=== PATIENT | female | born 1965 | race Caucasian/White ===

== ENCOUNTER 2017-05-03 01:12 | Emergency (ER) | payer SELFPAY ==
[~2017-05-03] VITALS: Ht 162.6 cm; Wt 72.6 kg
[2017-05-03 01:50] LABS: BILIRUBIN,URINE NEGATIVE (NEG); GLUCOSE,URINE NEGATIVE (NEG); NITRITE,URINE NEGATIVE (NEG); PROTEIN,URINE NEGATIVE (NEG-TRACE); UROBILINOGEN,URINE 0.2 mg/dL (0.2 mg/dL)
[2017-05-03 01:51] LABS: BASO # 0.1 x10^3/uL (0.0-0.2); BASO % 1 % (0-3); EOS % 2 % (0-3); HEMATOCRIT 44.6 % (36.0-47.0); HEMOGLOBIN 14.9 g/dL (12.0-15.5); LYMPH # 3.7 x10^3/uL (1.0-4.8); LYMPH % 31 % (24-48); MEAN CORPUSCULAR HEMOGLOBIN 31 pg (25-35); MEAN CORPUSCULAR HGB CONC 33 g/dL (31-37); MEAN CORPUSCULAR VOLUME 94 fL (79-100); MONO % 8 % (0-9); NEUT % 59 % (31-73); PLATELET COUNT 272 x10^3/uL (140-400); RED BLOOD COUNT 4.76 x10^6/uL (3.50-5.40); WHITE BLOOD COUNT 11.8 x10^3/uL (4.0-11.0)
[2017-05-03 01:53] LABS: NEG OBC UR NEG; POS OBC UR POS
[2017-05-03 01:58] LABS: SQUAMOUS EPITHELIAL CELL,UR OCC /LPF; WBC,URINE 0 /HPF (0-4)
[2017-05-03 01:59] LABS: BACTERIA,URINE 0 /HPF (0-FEW)
[2017-05-03] MEDS ORDERED: IV NORMAL SALINE 1000ML BAG 1,000 ML IV ONE (02:00)
[2017-05-03] MEDS ORDERED: ONDANSETRON PF 4 MG/2 ML VIAL. IV ONE (02:00)
[2017-05-03] MEDS ORDERED: HYDROmorphone 2 MG/ML VIAL IV ONE (02:00)
[2017-05-03] MEDS ORDERED: KETOROLAC 15 MG/ML VIAL. IV ONE (02:00)
[2017-05-03 02:48] LABS: CALCIUM 9.4 mg/dL (8.5-10.1); GFR 58.5; POTASSIUM 3.2 mmol/L (3.5-5.1)
--- NOTE | 2017-05-03 02:51 | RAD ---
Right upper quadrant abdominal ultrasound History: Right upper quadrant and epigastric pain, nausea, vomiting x 6 hrs Comparison: None. Technique: Transabdominal ultrasound images are obtained. Findings: Visualized pancreas is unremarkable. Liver is normal in echogenicity. No focal hepatic masses are identified. Portal flow is hepatopedal. Right hepatic lobe measures 15.7 cm, normal. There is cholelithiasis. There is a possibly nonmobile 15 mm shadowing stone in the gallbladder neck. The gallbladder wall is mildly thickened measuring 4 mm. Sonographic Ramirez sign is positive. Common bile duct caliber is borderline dilated measuring 7 mm in diameter. The right kidney measures 11.2 cm in length. No hydronephrosis. There are right renal cysts, largest lateral interpolar measures 3.6 x 2.5 x 2.8 cm. Visualized portions of the aorta and IVC have normal caliber. IMPRESSION: 1. Cholelithiasis. The gallbladder wall is mildly thickened, sonographic Ramirez sign is positive. Findings suggestive of cholecystitis. 2. Right renal cysts. Electronically signed by: Arian Baker MD (05/03/2017 2:48 AM) [id number]
[2017-05-03 02:53] VITALS: BP 115/72
[2017-05-03 02:54] LABS: ALBUMIN 4.1 g/dL (3.4-5.0); ALBUMIN/GLOBULIN RATIO 1.2 (1.0-1.7); TOTAL BILIRUBIN 0.2 mg/dL (0.2-1.0); TOTAL PROTEIN 7.5 g/dL (6.4-8.2)
[2017-05-03] MEDS ORDERED: ONDA4TAB10 SL (03:10)
[2017-05-03] MEDS ORDERED: IBUP-1007 PO (03:10)
[2017-05-03] MEDS ORDERED: HYOS0.1265 SL (03:10)
--- NOTE | 2017-05-03 03:10 | PHYS DOC ---
Past Medical History Past Medical History: Hypertension Past Surgical History: Alcohol Use: None Drug Use: None Adult General Chief Complaint Chief Complaint: FLANK PAIN HPI HPI Patient is a 52 year old female with a history of hypertension presents here today complaining of right upper quadrant and flank pain that started approximately 7 PM. Patient denies any history of diabetes liver longer kidney problems. Patient reports she does smoke however no alcohol or drugs. Patient is allergic to Lortab. Patient reports makes her violently sick. Patient has any fevers shakes chills. Patient portion had nausea vomiting. No diarrhea. No dysuria frequency urgency. No hematuria. No chest pain or shortness of breath. No cough cold or runny nose. Patient reports that the pain is not exacerbated or relieved with anything that she can relate to. Patient reports pain is colicky in nature is greatest in the right upper quadrant and radiates to her back. Patient's physical exam is significant for severe tenderness to palpation to the right upper quadrant. Patient has no rebound or guarding. Patient has normal active bowel sounds. Patient has tenderness to palpation to her left flank as well. Patient does not present with any signs or symptoms O be consistent with an acute surgical abdomen. Patient's ER workup consisted of labs were unremarkable. Patient's LFTs were within normal limits. Patient's lipase was normal. Patient's ultrasound of her right upper quadrant which revealed cholelithiasis. The gallbladder wall is mildly thickened with a sonographic Ramirez sign. Findings are suggestive for cholecystitis on the ultrasound. We'll exam however is not consistent with acute cholecystitis. Patient has no fever, no white count. Patient has no Ramirez sign on my exam currently. Patient currently reports the pain is completely resolved after pain medications given in the ER. Assessment and plan This is a 52-year-old female who presents here today complaining of right upper quadrant pain. Patient does have an abnormal ultrasound. Ultrasound is consistent with cholelithiasis. There may be a question of cholecystitis given that she does have a sonographic Ramirez's and a slightly dilated gallbladder with wall thickness. Patient's physical exam currently is Dr. consistent with acute cholecystitis given that she is completely pain-free. Patient's been monitored in the ED for greater than 1-2 hours now and the pain is completely resolved. Patient is laughing playful getting around with her daughter and does not appear to be in any distress whatsoever. Patient reports that she has a 0- 10 pain right now and does not wish to be admitted to the hospital for any further evaluation or pain management. Patient reports that she wants to go home. Patient be discharged home with a prescription for Levsin as well as Zofran and ibuprofen. Patient was instructed to follow-up with her primary care physician for referral to see his surgeon in case she has a need for elective: Cystectomy in the future. Review of Systems Review of Systems Constitutional: Denies fever or chills [] Eyes: Denies change in visual acuity, redness, or eye pain [] All other review systems are negative except as documented in the history of present illness portion. Current Medications Current Medications Current Medications Medications (Trade) Dose Ordered Sig/Chip Start Time Stop Time Status Last Admin Dose Admin Hydromorphone HCl (Dilaudid) 1 mg 1X ONCE 05/03/17 02:00 05/03/17 02:01 DC 05/03/17 02:00 1 MG Ketorolac Tromethamine (Toradol) 15 mg 1X ONCE 05/03/17 02:00 05/03/17 02:01 DC 05/03/17 02:00 15 MG Ondansetron HCl (Zofran) 4 mg 1X ONCE 05/03/17 02:00 05/03/17 02:01 DC 05/03/17 02:00 4 MG Sodium Chloride 1,000 ml @ 1,000 mls/hr 1X ONCE 05/03/17 02:00 05/03/17 02:59 DC 05/03/17 01:48 1,000 MLS/HR Allergies Allergies Allergies Coded Allergies Type Severity Reaction Last Updated Verified No Known Drug Allergies 05/03/17 No Physical Exam Physical Exam Constitutional: Well developed, well nourished, no acute distress, non-toxic appearance. [] HENT: Normocephalic, atraumatic, bilateral external ears normal, oropharynx moist, no oral exudates, nose normal. [] Eyes: PERRLA, EOMI, conjunctiva normal, no discharge. [] Neck: Normal range of motion, no tenderness, supple, no stridor. [] Cardiovascular:Heart rate regular rhythm, Lungs & Thorax: Bilateral breath sounds clear to auscultation [] Abdomen: Tenderness to palpation to the right upper quadrant. No rebound or guarding. No Ramirez sign. Patient does not present with any signs or symptoms of be consistent with an acute surgical abdomen. Skin: Warm, dry, no erythema, no rash. [] Back: No tenderness, no CVA tenderness. [] Extremities: No tenderness, no cyanosis, no clubbing, ROM intact, no edema. [] Neurologic: Alert and oriented X 3, normal motor function, normal sensory function, no focal deficits noted. [] Psychologic: Affect normal, judgement normal, mood normal. [] Current Patient Data Vital Signs Vital Signs Date Time Temp Pulse Resp B/P (MAP) Pulse Ox O2 Delivery O2 Flow Rate FiO2 05/03/17 02:53 70 16 115/72 (86) 99 Room Air 05/03/17 01:21 97.9 97.9 Lab Values Laboratory Tests Test 05/03/17 01:25 White Blood Count 11.8 x10^3/uL (4.0-11.0) H Red Blood Count 4.76 x10^6/uL (3.50-5.40) Hemoglobin 14.9 g/dL (12.0-15.5) Hematocrit 44.6 % (36.0-47.0) Mean Corpuscular Volume 94 fL (79-100) Mean Corpuscular Hemoglobin 31 pg (25-35) Mean Corpuscular Hemoglobin Concent 33 g/dL (31-37) Red Cell Distribution Width 13.0 % (11.5-14.5) Platelet Count 272 x10^3/uL (140-400) Neutrophils (%) (Auto) 59 % (31-73) Lymphocytes (%) (Auto) 31 % (24-48) Monocytes (%) (Auto) 8 % (0-9) Eosinophils (%) (Auto) 2 % (0-3) Basophils (%) (Auto) 1 % (0-3) Neutrophils # (Auto) 6.9 x10^3uL (1.8-7.7) Lymphocytes # (Auto) 3.7 x10^3/uL (1.0-4.8) Monocytes # (Auto) 1.0 x10^3/uL (0.0-1.1) Eosinophils # (Auto) 0.2 x10^3/uL (0.0-0.7) Basophils # (Auto) 0.1 x10^3/uL (0.0-0.2) Urine Collection Type Unknown Urine Color Yellow Urine Clarity Cloudy Urine pH 8.0 Urine Specific [place] 1.020 Urine Protein Negative mg/dL (NEG-TRACE) Urine Glucose (UA) Negative mg/dL (NEG) Urine Ketones (Stick) Negative mg/dL (NEG) Urine Blood Negative (NEG) Urine Nitrite Negative (NEG) Urine Bilirubin Negative (NEG) Urine Urobilinogen Dipstick 0.2 mg/dL (0.2 mg/dL) Urine Leukocyte Esterase Negative (NEG) Urine RBC 1-2 /HPF (0-2) Urine WBC 0 /HPF (0-4) Urine Squamous Epithelial Cells Occ /LPF Urine Amorphous Sediment Present /HPF Urine Bacteria 0 /HPF (0-FEW) Urine Mucus Mod /LPF Urine Test Negative (NEG) Sodium Level 146 mmol/L (136-145) H Potassium Level 3.2 mmol/L (3.5-5.1) L Chloride Level 106 mmol/L (98-107) Carbon Dioxide Level 26 mmol/L (21-32) Anion Gap 14 (6-14) Blood Urea Nitrogen 21 mg/dL (7-20) H Creatinine 1.0 mg/dL (0.6-1.0) Estimated GFR (Cockcroft-Gault) 58.5 BUN/Creatinine Ratio 21 (6-20) H Glucose Level 123 mg/dL (70-99) H Calcium Level 9.4 mg/dL (8.5-10.1) Total Bilirubin 0.2 mg/dL (0.2-1.0) Aspartate Amino Transferase (AST) 16 U/L (15-37) Alanine Aminotransferase (ALT) 27 U/L (14-59) Alkaline Phosphatase 77 U/L (46-116) Total Protein 7.5 g/dL (6.4-8.2) Albumin 4.1 g/dL (3.4-5.0) Albumin/Globulin Ratio 1.2 (1.0-1.7) Lipase 238 U/L (73-393) Laboratory Tests 05/03/17 01:25 Laboratory Tests 05/03/17 01:25 EKG EKG [] Radiology/Procedures Radiology/Procedures [] Course & Med Decision Making Course & Med Decision Making Pertinent Labs and Imaging studies reviewed. (See chart for details) [] Dragon Disclaimer Dragon Disclaimer This electronic medical record was generated, in whole or in part, using a voice recognition dictation system. Departure Departure Impression: Primary Impression: Cholelithiasis Additional Impression: Biliary colic Disposition: 01 HOME, SELF-CARE Condition: IMPROVED Patient Instructions: Biliary Colic Scripts Ondansetron (ZOFRAN ODT) 4 Mg Tab.rapdis 1 TAB SL Q6HRS Y for NAUSEA, #12 TAB Prov: VOLODYMYR GUTIERRES MD 05/03/17 Hyoscyamine Sulfate (LEVSIN-SL) 0.125 Mg Tab.subl 0.125 MG SL Q6-8HRS Y for abdominal cramps, #10 Prov: VOLODYMYR GUTIERRES MD 05/03/17 Ibuprofen (IBUPROFEN) 600 Mg Tablet 600 MG PO PRN Q6HRS Y for PAIN, #20 TAB Prov: VOLODYMYR GUTIERRES MD 05/03/17 Problem Qualifiers VOLODYMYR GUTIERRES MD May 03, 2017 03:10
== END 2017-05-03 03:25 | disposition home or self-care (01) ==
LOC: ER 01:12
DX: K80.70 Calculus of gallbladder and bile duct without cholecystitis without obstruction (principal); I10 Essential (primary) hypertension; F17.200 Nicotine dependence, unspecified, uncomplicated; Z88.8 Allergy status to other drugs, medicaments and biological substances
CPT/HCPCS: 36415; 76705; 80053; 81001; 81025; 83690; 85027; 96361; 96374; 96375; 99285; J1170; J1885; J2405; J7030

== ENCOUNTER 2017-10-08 04:51 | Inpatient (IN) | payer SELFPAY ==
[2017-10-08] VITALS (12 sets, daily range): BP systolic 111–147; BP diastolic 69–86
[~2017-10-08] VITALS: Ht 160 cm; Wt 66.2 kg
[~2017-10-08 04:51] MED LIST: HYOS0.1265 SL; IBUP-1007 PO; ONDA4TAB10 SL
[2017-10-08 05:43] LABS: BASO # 0.1 x10^3/uL (0.0-0.2); BASO % 1 % (0-3); EOS % 2 % (0-3); HEMATOCRIT 43.2 % (36.0-47.0); HEMOGLOBIN 14.6 g/dL (12.0-15.5); LYMPH # 2.3 x10^3/uL (1.0-4.8); LYMPH % 26 % (24-48); MEAN CORPUSCULAR HEMOGLOBIN 31 pg (25-35); MEAN CORPUSCULAR HGB CONC 34 g/dL (31-37); MEAN CORPUSCULAR VOLUME 92 fL (79-100); MONO % 6 % (0-9); NEUT % 65 % (31-73); PLATELET COUNT 267 x10^3/uL (140-400); RED BLOOD COUNT 4.68 x10^6/uL (3.50-5.40); RED CELL DISTRIBUTION WIDTH 12.8 % (11.5-14.5); WHITE BLOOD COUNT 8.9 x10^3/uL (4.0-11.0)
[2017-10-08 05:44] LABS: BILIRUBIN,URINE NEGATIVE (NEG); GLUCOSE,URINE NEGATIVE (NEG); NITRITE,URINE NEGATIVE (NEG); PROTEIN,URINE NEGATIVE (NEG-TRACE); UROBILINOGEN,URINE 0.2 mg/dL (0.2 mg/dL)
[2017-10-08] MEDS ORDERED: fentaNYL PF VIAL 100 MCG/2 ML VIAL IV PRN ×3 (05:45→09:15)
[2017-10-08 05:53] LABS: CALCIUM 9.5 mg/dL (8.5-10.1); CREATININE 0.8 mg/dL (0.6-1.0); GFR 75.6; POTASSIUM 3.7 mmol/L (3.5-5.1)
[2017-10-08 05:58] LABS: BACTERIA,URINE MODERATE /HPF (0-FEW); SQUAMOUS EPITHELIAL CELL,UR MOD /LPF
[2017-10-08 05:58] LABS: ALBUMIN 3.9 g/dL (3.4-5.0); ALBUMIN/GLOBULIN RATIO 1.3 (1.0-1.7); TOTAL BILIRUBIN 0.4 mg/dL (0.2-1.0)
[2017-10-08 05:59] LABS: WBC,URINE OCC /HPF (0-4)
[2017-10-08] MEDS ORDERED: IV NORMAL SALINE 1000ML BAG 1,000 ML IV SCH (06:00)
[2017-10-08] MEDS ORDERED: ONDANSETRON PF 4 MG/2 ML VIAL. IV ONE (06:00)
--- NOTE | 2017-10-08 06:01 | PHYS DOC ---
Past Medical History Past Medical History: Hypertension Past Surgical History: Alcohol Use: None Drug Use: None Adult General Chief Complaint Chief Complaint: ABDOMINAL PAIN HPI HPI Patient is a 52 year old female who presents with complaint of abdominal pain which started last night at 1700. Patient states that the pain is in her upper abdomen and radiates towards her back. Patient has history of cholelithiasis. Patient has not had her gallbladder taken out. Patient states that she has had nausea but no vomiting and denies any fevers. Patient states that the pain has been coming and going but becomes very severe, rating it as 9 out of 10 at its worst. Patient states that she has taken naproxen with no relief in symptoms. The patient denies any chest pain, shortness of breath. Patient denies any known exacerbating symptoms for her pain at this time. The patient states her pain feels very similar to previous episodes of biliary colic but states that this has become more severe.[] Review of Systems Review of Systems Constitutional: Denies fever or chills [] Eyes: Denies change in visual acuity, redness, or eye pain [] HENT: Denies nasal congestion or sore throat [] Respiratory: Denies cough or shortness of breath [] Cardiovascular: Denies chest pain or edema[] GI: Abdominal pain, nausea, denies vomiting or diarrhea[] : Denies dysuria or hematuria [] Musculoskeletal: Denies back pain or joint pain [] Integument: Denies rash or skin lesions [] Neurologic: Denies headache, focal weakness or sensory changes [] All other systems were reviewed and found to be within normal limits, except as documented in this note. Current Medications Current Medications Current Medications Medications (Trade) Dose Ordered Sig/Chip Start Time Stop Time Status Last Admin Dose Admin Fentanyl Citrate (Fentanyl 2ml Vial) 50 mcg PRN Q15MIN PRN 10/08/17 05:45 10/09/17 05:44 10/08/17 07:07 50 MCG Ondansetron HCl (Zofran) 4 mg 1X ONCE 10/08/17 06:00 10/08/17 06:01 DC 10/08/17 07:06 4 MG Sodium Chloride 1,000 ml @ 1,000 mls/hr Q1H 10/08/17 06:00 10/08/17 06:59 DC 10/08/17 07:04 1,000 MLS/HR Allergies Allergies Allergies Coded Allergies Type Severity Reaction Last Updated Verified No Known Drug Allergies 05/03/17 No Physical Exam Physical Exam Constitutional: Alert, afebrile, appears in moderate discomfort. [] HENT: Normocephalic, atraumatic, bilateral external ears normal, oropharynx moist, no oral exudates, nose normal. [] Eyes: PERRLA, EOMI, conjunctiva normal, no discharge. [] Neck: Normal range of motion, no tenderness, supple, no stridor. [] Cardiovascular:Heart rate regular rhythm, no murmur [] Lungs & Thorax: Bilateral breath sounds clear to auscultation [] Abdomen: Bowel sounds normal, soft, positive Ramirez's sign, no masses, no pulsatile masses. [] Skin: Warm, dry, no erythema, no rash. [] Back: No tenderness, no CVA tenderness. [] Extremities: No tenderness, no cyanosis, no clubbing, ROM intact, no edema. [] Neurologic: Alert and oriented X 3, normal motor function, normal sensory function, no focal deficits noted. [] Current Patient Data Vital Signs Vital Signs Date Time Temp Pulse Resp B/P (MAP) Pulse Ox O2 Delivery O2 Flow Rate FiO2 10/08/17 07:07 19 97 Room Air 10/08/17 04:53 97.8 64 149/94 (112) 97.8 Lab Values Laboratory Tests Test 10/08/17 05:08 10/08/17 05:20 White Blood Count 8.9 x10^3/uL (4.0-11.0) Red Blood Count 4.68 x10^6/uL (3.50-5.40) Hemoglobin 14.6 g/dL (12.0-15.5) Hematocrit 43.2 % (36.0-47.0) Mean Corpuscular Volume 92 fL (79-100) Mean Corpuscular Hemoglobin 31 pg (25-35) Mean Corpuscular Hemoglobin Concent 34 g/dL (31-37) Red Cell Distribution Width 12.8 % (11.5-14.5) Platelet Count 267 x10^3/uL (140-400) Neutrophils (%) (Auto) 65 % (31-73) Lymphocytes (%) (Auto) 26 % (24-48) Monocytes (%) (Auto) 6 % (0-9) Eosinophils (%) (Auto) 2 % (0-3) Basophils (%) (Auto) 1 % (0-3) Neutrophils # (Auto) 5.8 x10^3uL (1.8-7.7) Lymphocytes # (Auto) 2.3 x10^3/uL (1.0-4.8) Monocytes # (Auto) 0.5 x10^3/uL (0.0-1.1) Eosinophils # (Auto) 0.2 x10^3/uL (0.0-0.7) Basophils # (Auto) 0.1 x10^3/uL (0.0-0.2) Sodium Level 144 mmol/L (136-145) Potassium Level 3.7 mmol/L (3.5-5.1) Chloride Level 107 mmol/L (98-107) Carbon Dioxide Level 26 mmol/L (21-32) Anion Gap 11 (6-14) Blood Urea Nitrogen 13 mg/dL (7-20) Creatinine 0.8 mg/dL (0.6-1.0) Estimated GFR (Cockcroft-Gault) 75.6 BUN/Creatinine Ratio 16 (6-20) Glucose Level 119 mg/dL (70-99) H Calcium Level 9.5 mg/dL (8.5-10.1) Total Bilirubin 0.4 mg/dL (0.2-1.0) Aspartate Amino Transferase (AST) 14 U/L (15-37) L Alanine Aminotransferase (ALT) 21 U/L (14-59) Alkaline Phosphatase 78 U/L (46-116) Total Protein 7.0 g/dL (6.4-8.2) Albumin 3.9 g/dL (3.4-5.0) Albumin/Globulin Ratio 1.3 (1.0-1.7) Lipase 171 U/L (73-393) Urine Collection Type Void Urine Color Yellow Urine Clarity Clear Urine pH 6.0 Urine Specific [place] 1.020 Urine Protein Negative mg/dL (NEG-TRACE) Urine Glucose (UA) Negative mg/dL (NEG) Urine Ketones (Stick) Negative mg/dL (NEG) Urine Blood Moderate (NEG) Urine Nitrite Negative (NEG) Urine Bilirubin Negative (NEG) Urine Urobilinogen Dipstick 0.2 mg/dL (0.2 mg/dL) Urine Leukocyte Esterase Negative (NEG) Urine RBC 6-10 /HPF (0-2) Urine WBC Occ /HPF (0-4) Urine Squamous Epithelial Cells Mod /LPF Urine Bacteria Moderate /HPF (0-FEW) Urine Mucus Marked /LPF Laboratory Tests 10/08/17 05:08 Laboratory Tests 10/08/17 05:08 EKG EKG Not performed[] Radiology/Procedures Radiology/Procedures [] Course & Med Decision Making Course & Med Decision Making Pertinent Labs and Imaging studies reviewed. (See chart for details) Patient started on IV fluids, fentanyl, and Zofran. Abdominal ultrasound pending at time of sign out. Care of patient signed over to Dr. Webb at [phone]. [phone] I have discussed lab and US with patient. Will contact surgery and discuss options, pt agreeable with surgery. Pain well controlled. GEN: no distress, non toxic HEENT: NCAT, anicteric, no JVD CV: RRR, normal perfusion Lungs: CTAB, no tachypnea Abdomen: non distended, TTP ruq, no g/r, no pulsatile mass EXTR: wnl, no signs of DVT or edema Back: normal ROM Neuro: no focal deficits. Psych: normal mood [address] Ayala, recommends admission to hospitalist and he will consult Dragon Disclaimer Dragon Disclaimer This electronic medical record was generated, in whole or in part, using a voice recognition dictation system. Departure Departure Impression: Primary Impression: Cholelithiasis Additional Impression: Cholecystitis Disposition: ADMITTED INPATIENT Admitting Physician: Radha Foley Condition: STABLE Referrals: CHEYENNE DIAZ MD (PCP) Problem Qualifiers JIE CARDOSO MD Oct 08, 2017 06:01 Jayce WEBB MD Oct 08, 2017 07:16
--- NOTE | 2017-10-08 07:06 | RAD ---
Clinical History: Abdominal pain and nausea Technique: Sonographic examination of the right upper quadrant of the abdomen was performed and multiple static images were obtained. Comparison: none Findings: The majority of the liver is visualized and appears homogeneous. The common bile duct is mildly dilated and measures 8 mm in diameter. The gallbladder is seen with stones and mild wall thickening and tenderness. The pancreas is not well visualized due to overlying bowel gas but appears within normal limits. The right kidney is seen with multiple cysts but no hydronephrosis and measures 11 cm in length. Impression: 1. Cholelithiasis and evidence of mild acute cholecystitis. 2. Mildly dilated common bile duct. Electronically signed by: [place] III, MD (10/08/2017 7:02 AM) [id number]
--- NOTE | 2017-10-08 07:34 | EKG ---
[facility] [address] [place] [address] Test Date: 2017-10-08 Test Time: 07:26:14 Pat Name: BROWN LITTLEJOHN Department: Room: Gender: F [employer]visor [employer]: : 1965 Requested By: JIE CARDOSO Order Number: [id number] Reading MD: Mario Betancourt Measurements Intervals [place] Rate: 51 P: 0 [place]: 136 QRS: -48 QRSD: 86 T: 56 QT: 442 QTc: 409 Interpretive Statements SINUS RHYTHM ABNORMAL LEFT AXIS DEVIATION LEFT ANTERIOR FASCICULAR BLOCK ABNORMAL ECG Electronically Signed On 10-18-2017 9:08:30 [employer] by Mario Betancourt
[2017-10-08] MEDS ORDERED: PIPERACILLIN/TAZOBACTAM 3.375 GM in IV DEXTROSE 5% 50 ML IV ONE (08:15)
[2017-10-08] MEDS ORDERED: PIPERACILLIN/TAZO IV Push 3.375 GM VIAL. IVP ONE (08:30)
--- NOTE | 2017-10-08 09:13 | PDOC2 ---
CONSULT Date of Consult Date of Consult DATE: 10/08/17 TIME: 09:02 Reason for Consult Reason for Consult: cholecystitis Referring Physician Referring Physician: ER Identification/Chief Complaint Chief Complaint abdominal pain Problems: Source Source: Chart review, Patient History of Present Illness Reason for Visit: Reports acute onset of upper abdominal pain yesterday. She has had issues with similar pain off and on for some time. Associated nausea, no aggravating factors. Currently most pain is RUQ/epigastric Past Medical History Cardiovascular: HTN GI: GERD Past Surgical History Past Surgical History: Family History Family History: Other (noncontributory to current illness) Social History <1 pack per day ALCOHOL: rare Drugs: None Lives: Alone Current Problem List Problem List Problems Medical Problems: (1) Cholecystitis Status: Acute (2) Cholelithiasis Status: Acute Current Medications Current Medications Current Medications Fentanyl Citrate (Fentanyl 2ml Vial) 50 mcg PRN Q15MIN PRN IV PAIN GREATER THAN 3/10 Last administered on 10/08/17 07:07; Start 10/08/17 at 05:45; Stop 10/09/17 at 05:44 Sodium Chloride 1,000 ml @ 1,000 mls/hr Q1H IV Last administered on 07:04; Start 10/08/17 at 06:00; Stop 10/08/17 at 06:59; Status DC Ondansetron HCl (Zofran) 4 mg 1X ONCE IV Last administered on 10/08/17 07:06 ; Start 10/08/17 at 06:00; Stop 10/08/17 at 06:01; Status DC Piperacillin Sod/ Tazobactam Sod 3.375 gm/Dextrose 50 ml @ 100 mls/hr 1X ONCE IV ; Start 10/08/17 at 08:15; Stop 10/08/17 at 08:44; Status UNV Piperacillin Sod/ Tazobactam Sod (Zosyn) 3.375 gm ONCE ONCE IVP ; Start at 08:30; Stop 10/08/17 at 08:31; Status DC Lactobacillus Rhamnosus (Culturelle) 1 cap BID PO ; Start 10/08/17 at 21:00 Active Scripts Active Zofran Odt (Ondansetron) 4 Mg Tab.rapdis 1 Tab SL Q6HRS PRN Levsin-Sl (Hyoscyamine Sulfate) 0.125 Mg Tab.subl 0.125 Mg SL Q6-8HRS PRN Ibuprofen 600 Mg Tablet 600 Mg PO PRN Q6HRS PRN Allergies Allergies: Coded Allergies: No Known Drug Allergies (Unverified , 05/03/17) ROS General: No: Chills, Other (fevers) PSYCHOLOGICAL ROS: No: Anxiety, Depression Eyes: No Blurry vision, No Double vision HEENT: No: Heacaches Hematological and Lymphatic: No: Bleeding Problems, Blood Clots Respiratory: No: Cough, Shortness of breath Cardiovascular: No Chest Pain, No Palpitations Gastrointestinal: No Diarrhea, No Constipation Genitourinary: No Dysuria, No Hematuria Musculoskeletal: No Joint Pain, No Muscle Pain Neurological: No Confusion, No Numbness/Tingling Skin: No Pruritus, No Rash Physical Exam General: Alert, Oriented X3, Cooperative, No acute distress HEENT: PERRLA, Mucous membr. moist/pink Lungs: Clear to auscultation, Normal air movement Heart: Regular rate, Normal S1, Normal S2, No murmurs Abdomen: Soft, Other (ND, Moderate RUQ TTP) Extremities: No clubbing, No cyanosis Skin: No rashes, No breakdown Neuro: Normal gait, Normal speech Psych/Mental Status: Mental status NL, Mood NL MUSCULOSKELETAL: No deformity, No swelling Vitals VITALS Vital Signs Date Time Temp Pulse Resp B/P (MAP) Pulse Ox O2 Delivery O2 Flow Rate FiO2 10/08/17 08:25 96.6 69 16 136/79 (98) 97 Room Air 96.6 Labs Labs Laboratory Tests Test 10/08/17 05:08 10/08/17 05:20 White Blood Count 8.9 x10^3/uL (4.0-11.0) Red Blood Count 4.68 x10^6/uL (3.50-5.40) Hemoglobin 14.6 g/dL (12.0-15.5) Hematocrit 43.2 % (36.0-47.0) Mean Corpuscular Volume 92 fL (79-100) Mean Corpuscular Hemoglobin 31 pg (25-35) Mean Corpuscular Hemoglobin Concent 34 g/dL (31-37) Red Cell Distribution Width 12.8 % (11.5-14.5) Platelet Count 267 x10^3/uL (140-400) Neutrophils (%) (Auto) 65 % (31-73) Lymphocytes (%) (Auto) 26 % (24-48) Monocytes (%) (Auto) 6 % (0-9) Eosinophils (%) (Auto) 2 % (0-3) Basophils (%) (Auto) 1 % (0-3) Neutrophils # (Auto) 5.8 x10^3uL (1.8-7.7) Lymphocytes # (Auto) 2.3 x10^3/uL (1.0-4.8) Monocytes # (Auto) 0.5 x10^3/uL (0.0-1.1) Eosinophils # (Auto) 0.2 x10^3/uL (0.0-0.7) Basophils # (Auto) 0.1 x10^3/uL (0.0-0.2) Sodium Level 144 mmol/L (136-145) Potassium Level 3.7 mmol/L (3.5-5.1) Chloride Level 107 mmol/L (98-107) Carbon Dioxide Level 26 mmol/L (21-32) Anion Gap 11 (6-14) Blood Urea Nitrogen 13 mg/dL (7-20) Creatinine 0.8 mg/dL (0.6-1.0) Estimated GFR (Cockcroft-Gault) 75.6 BUN/Creatinine Ratio 16 (6-20) Glucose Level 119 mg/dL (70-99) Calcium Level 9.5 mg/dL (8.5-10.1) Total Bilirubin 0.4 mg/dL (0.2-1.0) Aspartate Amino Transf (AST/SGOT) 14 U/L (15-37) Alanine Aminotransferase (ALT/SGPT) 21 U/L (14-59) Alkaline Phosphatase 78 U/L (46-116) Total Protein 7.0 g/dL (6.4-8.2) Albumin 3.9 g/dL (3.4-5.0) Albumin/Globulin Ratio 1.3 (1.0-1.7) Lipase 171 U/L (73-393) Urine Collection Type Void Urine Color Yellow Urine Clarity Clear Urine pH 6.0 Urine Specific [place] 1.020 Urine Protein Negative mg/dL (NEG-TRACE) Urine Glucose (UA) Negative mg/dL (NEG) Urine Ketones (Stick) Negative mg/dL (NEG) Urine Blood Moderate (NEG) Urine Nitrite Negative (NEG) Urine Bilirubin Negative (NEG) Urine Urobilinogen Dipstick 0.2 mg/dL (0.2 mg/dL) Urine Leukocyte Esterase Negative (NEG) Urine RBC 6-10 /HPF (0-2) Urine WBC Occ /HPF (0-4) Urine Squamous Epithelial Cells Mod /LPF Urine Bacteria Moderate /HPF (0-FEW) Urine Mucus Marked /LPF Laboratory Tests Test 10/08/17 05:08 10/08/17 05:20 White Blood Count 8.9 x10^3/uL (4.0-11.0) Red Blood Count 4.68 x10^6/uL (3.50-5.40) Hemoglobin 14.6 g/dL (12.0-15.5) Hematocrit 43.2 % (36.0-47.0) Mean Corpuscular Volume 92 fL (79-100) Mean Corpuscular Hemoglobin 31 pg (25-35) Mean Corpuscular Hemoglobin Concent 34 g/dL (31-37) Red Cell Distribution Width 12.8 % (11.5-14.5) Platelet Count 267 x10^3/uL (140-400) Neutrophils (%) (Auto) 65 % (31-73) Lymphocytes (%) (Auto) 26 % (24-48) Monocytes (%) (Auto) 6 % (0-9) Eosinophils (%) (Auto) 2 % (0-3) Basophils (%) (Auto) 1 % (0-3) Neutrophils # (Auto) 5.8 x10^3uL (1.8-7.7) Lymphocytes # (Auto) 2.3 x10^3/uL (1.0-4.8) Monocytes # (Auto) 0.5 x10^3/uL (0.0-1.1) Eosinophils # (Auto) 0.2 x10^3/uL (0.0-0.7) Basophils # (Auto) 0.1 x10^3/uL (0.0-0.2) Sodium Level 144 mmol/L (136-145) Potassium Level 3.7 mmol/L (3.5-5.1) Chloride Level 107 mmol/L (98-107) Carbon Dioxide Level 26 mmol/L (21-32) Anion Gap 11 (6-14) Blood Urea Nitrogen 13 mg/dL (7-20) Creatinine 0.8 mg/dL (0.6-1.0) Estimated GFR (Cockcroft-Gault) 75.6 BUN/Creatinine Ratio 16 (6-20) Glucose Level 119 mg/dL (70-99) Calcium Level 9.5 mg/dL (8.5-10.1) Total Bilirubin 0.4 mg/dL (0.2-1.0) Aspartate Amino Transf (AST/SGOT) 14 U/L (15-37) Alanine Aminotransferase (ALT/SGPT) 21 U/L (14-59) Alkaline Phosphatase 78 U/L (46-116) Total Protein 7.0 g/dL (6.4-8.2) Albumin 3.9 g/dL (3.4-5.0) Albumin/Globulin Ratio 1.3 (1.0-1.7) Lipase 171 U/L (73-393) Urine Collection Type Void Urine Color Yellow Urine Clarity Clear Urine pH 6.0 Urine Specific [place] 1.020 Urine Protein Negative mg/dL (NEG-TRACE) Urine Glucose (UA) Negative mg/dL (NEG) Urine Ketones (Stick) Negative mg/dL (NEG) Urine Blood Moderate (NEG) Urine Nitrite Negative (NEG) Urine Bilirubin Negative (NEG) Urine Urobilinogen Dipstick 0.2 mg/dL (0.2 mg/dL) Urine Leukocyte Esterase Negative (NEG) Urine RBC 6-10 /HPF (0-2) Urine WBC Occ /HPF (0-4) Urine Squamous Epithelial Cells Mod /LPF Urine Bacteria Moderate /HPF (0-FEW) Urine Mucus Marked /LPF Assessment/Plan Assessment/Plan acute cholecystitis HTN Tobaccoism NPO, plan for Lap genna today DEANNA BURRIS APRN Oct 08, 2017 09:13
[2017-10-08] MEDS ORDERED: IV RINGERS,LACTATED 1000ML 1,000 ML IV SCH (09:14)
[2017-10-08] MEDS ORDERED: PROCHLORPERAZINE 10 MG/2 ML VIAL. IV PRN (09:15)
[2017-10-08] MEDS ORDERED: ONDANSETRON PF 4 MG/2 ML VIAL. IV PRN ×2 (09:15→16:00)
[2017-10-08] MEDS ORDERED: HYDROmorphone 2 MG/ML VIAL IV PRN ×2 (09:15→16:00)
[2017-10-08] MEDS ORDERED: MORPHINE SULFATE 2 MG/ML DISP.SYRIN. IV PRN (09:15)
[2017-10-08] MEDS ORDERED: LIDOCAINE 1% PF 2 ML VIAL. ID PRN (09:15)
[2017-10-08] MEDS ORDERED: SEVOFLURANE 61 TO 120 MINUTES. IH ONE (09:45)
[2017-10-08] MEDS ORDERED: MIDAZOLAM HCL/PF 2 MG/2 ML VIAL. ONE (09:48)
[2017-10-08] MEDS ORDERED: ROCURONIUM 50 MG/5 ML VIAL. ONE (09:49)
[2017-10-08] MEDS ORDERED: NEOSTIGMINE METHYLSULFATE 5 MG/5 ML SYRINGE. ONE (09:49)
[2017-10-08] MEDS ORDERED: PROPOFOL 20 ML IV ONE (09:49)
[2017-10-08] MEDS ORDERED: KETOROLAC 30 MG/ML INJ FOR OR. INJ ONE (09:49)
[2017-10-08] MEDS ORDERED: GLYCOPYRROLATE 1 MG/5 ML VIAL. ONE (09:49)
[2017-10-08] MEDS ORDERED: LIDOCAINE 2% PF Vial for OR 5 ML VIAL. ONE (09:49)
[2017-10-08] MEDS ORDERED: DEXAMETHASONE SOD PHOS 20 MG/5 ML VIAL. ONE (09:49)
[2017-10-08] MEDS ORDERED: fentaNYL PF VIAL 100 MCG/2 ML VIAL ONE ×2 (09:49→12:57)
[2017-10-08] MEDS ORDERED: ONDANSETRON PF 4 MG/2 ML VIAL. ONE (09:49)
[2017-10-08] MEDS ORDERED: BUPIVAC MPF-EPI 0.5%-1:200000 30 ML VIAL. ONE (11:46)
[2017-10-08] MEDS ORDERED: IOHEXOL 300 MG/ML 100ML VIAL. ONE (11:47)
[2017-10-08] MEDS ORDERED: GLUCAGON,HUMAN RECOMBINANT 1 MG/ML VIAL. ONE (11:47)
[2017-10-08] MEDS ORDERED: SURGICEL HEMOSTAT 4X8 EACH. ONE (11:47)
[2017-10-08] MEDS ORDERED: ACETAMINOPHEN 500 MG TABLET PO PRN (12:15)
--- NOTE | 2017-10-08 12:46 | RAD ---
C-arm fluoroscopy with fluoroscopic spot views Indications: Intraoperative cholangiogram. Total fluoroscopic time: 17 seconds. Total fluoroscopic spot images: 2 IMPRESSION: Fluoroscopic spot images demonstrate opacification of the extrahepatic biliary tree with free flow of contrast material from the common bile duct into the duodenum. No stricture or stone is evident.
[2017-10-08] MEDS ORDERED: DESFLURANE 61 TO 120 MINUTES IH ONE (12:57)
--- NOTE | 2017-10-08 13:08 | OP ---
DATE OF SURGERY: 10/08/2017 PREOPERATIVE DIAGNOSIS: Cholelithiasis with acute cholecystitis. POSTOPERATIVE DIAGNOSIS: Cholelithiasis with acute cholecystitis. PROCEDURE: Laparoscopic cholecystectomy with cholangiogram. SURGEON: Leon Hazel MD. IT LEAD: JACKELINE Brooks. ANESTHESIA: General endotracheal. ESTIMATED BLOOD LOSS: 25 mL. INTRAVENOUS FLUID: 1 liter. INDICATIONS: The patient is a 52-year-old with known cholelithiasis whose pain got worse last night. She brought that with her to the ED today where ultrasound shows some wall thickening and stones. She is brought for cholecystectomy. OPERATIVE FINDINGS: The liver was smooth and sharp. The gallbladder was moderately edematous. Cholangiograms were normal. There were omental adhesions in the lower abdomen from previous section. Visual inspection of the remainder of the abdomen failed to reveal obvious abnormalities. DESCRIPTION OF PROCEDURE: The patient brought to the operating suite, given a general endotracheal anesthetic and the abdomen prepped and draped in usual sterile fashion. A supraumbilical incision was infiltrated with local anesthetic, incised and a 5 mm Visiport used to safely gain access into the abdominal cavity, taking care to avoid injury to abdominal contents. Pneumoperitoneum was established. Camera inserted. Inspection carried out with results as noted above. With the table in reverse Trendelenburg rolled to the left, the epigastrium, midclavicular, and lateral ports were placed under direct vision. The gallbladder was retracted superolaterally and the cystic duct and cystic artery were isolated. The cystic duct was clipped on the gallbladder side. Cholangiograms were made. These were normal. In light of this, the catheter was removed. The cystic duct was clipped x 2 and divided, taking care to avoid injury or compromise to the common duct. An anterior and small posterior cystic artery were identified, clipped and divided. The gallbladder freed from the bed and placed in an EndoCatch bag. Good hemostasis was present. Table returned to level. Gallbladder delivered through the epigastric incision. Epigastric incision closed with interrupted 0 Vicryl suture. Intra-abdominal pressure decreased to 6 cm of water. No bleeding from the epigastric closure or from the midclavicular or lateral port sites after their removal. Abdomen decompressed, camera slowly removed, no bleeding seen. Skin incisions closed with subcuticular 4-0 Monocryl. Steri-Strips and sterile dressings applied. The patient awakened from her anesthetic and taken to the recovery room in satisfactory condition. LEON HAZEL MD DR: NORAH/diomedes JOB#: [id number] / [id number]
--- NOTE | 2017-10-08 13:32 | PDOC1 ---
History and Physical Date of Admission Date of Admission DATE: 10/08/17 TIME: 13:29 Identification/Chief Complaint Chief Complaint abd pain Problems: Source Source: Caregiver, Chart review History of Present Illness History of Present Illness 52-year-old female acute onset of abdominal pain mostly epigastric and right upper quadrant, no radiation, some nausea but no emesis, no fever, no bowel issues. Had similar prior episodes before but none this severe. No identifiable precipitating or alleviating factors. Imaging showed cholelithiasis and mildly dilated CBD and maybe early signs of cholecystitis. Gen. surgery consulted, currently patient is undergoing laparoscopic cholecystectomy. Past medical history only significant for hypertension GERD. SMokes currently Past Medical History Cardiovascular: HTN GI: GERD Past Surgical History Past Surgical History: , No pertinent history Family History Family History: Other (noncontributory to current illness) Social History Smoke: <1 pack per day ALCOHOL: rare Drugs: None Current Problem List Problem List Problems Medical Problems: (1) Cholecystitis Status: Acute (2) Cholelithiasis Status: Acute Problems: Current Medications Current Medications Current Medications Fentanyl Citrate (Fentanyl 2ml Vial) 50 mcg PRN Q15MIN PRN IV PAIN GREATER THAN 3/10 Last administered on 10/08/17 07:07; Start 10/08/17 at 05:45; Stop 10/09/17 at 05:44 Sodium Chloride 1,000 ml @ 1,000 mls/hr Q1H IV Last administered on 07:04; Start 10/08/17 at 06:00; Stop 10/08/17 at 06:59; Status DC Ondansetron HCl (Zofran) 4 mg 1X ONCE IV Last administered on 10/08/17 07:06 ; Start 10/08/17 at 06:00; Stop 10/08/17 at 06:01; Status DC Piperacillin Sod/ Tazobactam Sod 3.375 gm/Dextrose 50 ml @ 100 mls/hr 1X ONCE IV ; Start 10/08/17 at 08:15; Stop 10/08/17 at 08:44; Status UNV Piperacillin Sod/ Tazobactam Sod (Zosyn) 3.375 gm ONCE ONCE IVP Last administered on 10/08/17 10:33; Start 10/08/17 at 08:30; Stop 10/08/17 at 08 :31; Status DC Lactobacillus Rhamnosus (Culturelle) 1 cap BID PO ; Start 10/08/17 at 21:00 Ondansetron HCl (Zofran) 4 mg PRN Q6HRS PRN IV NAUSEA/VOMITING; Start at 09:15; Stop 10/08/17 at 18:00 Fentanyl Citrate (Fentanyl 2ml Vial) 25 mcg PRN Q5MIN PRN IV MILD PAIN; Start 10/08/17 at 09:15; Stop 10/08/17 at 18:00 Fentanyl Citrate (Fentanyl 2ml Vial) 50 mcg PRN Q5MIN PRN IV MODERATE TO SEVERE PAIN; Start 10/08/17 at 09:15; Stop 10/08/17 at 18:00 Morphine Sulfate 1 mg PRN Q10MIN PRN IV SEVERE PAIN; Start 10/08/17 at 09:15; Stop 10/08/17 at 18:00 Ringer's Solution 1,000 ml @ 30 mls/hr Q24H IV Last administered on t 10:34; Start 10/08/17 at 09:14; Stop 10/08/17 at 21:13 Lidocaine HCl (Xylocaine-Mpf 1% Vial) 2 ml 1X PRN PRN ID IV START; Start 10/08 at 09:15; Stop 10/08/17 at 18:00 Hydromorphone HCl (Dilaudid) 0.5 mg PRN Q10MIN PRN IV SEV PAIN, Second choice; Start 10/08/17 at 09:15; Stop 10/08/17 at 18:00 Prochlorperazine Edisylate (Compazine) 5 mg PACU PRN PRN IV NAUSEA, MRX1; Start 10/08/17 at 09:15; Stop 10/08/17 at 18:00 Sevoflurane (Ultane) 60 ml STK-MED ONCE IH ; Start 10/08/17 at 09:45; Stop at 09:46; Status DC Midazolam HCl (Versed) 2 mg STK-MED ONCE .ROUTE ; Start 10/08/17 at 09:48; Stop 10/08/17 at 09:49; Status DC Fentanyl Citrate (Fentanyl 2ml Vial) 100 mcg STK-MED ONCE .ROUTE ; Start at 09:49; Stop 10/08/17 at 09:50; Status DC Glycopyrrolate (Robinul) 1 mg STK-MED ONCE .ROUTE ; Start 10/08/17 at 09:49; Stop 10/08/17 at 09:50; Status DC Neostigmine Methylsulfate 5 mg STK-MED ONCE .ROUTE ; Start 10/08/17 at 09:49; Stop 10/08/17 at 09:50; Status DC Rocuronium Hunter (Zemuron) 50 mg STK-MED ONCE .ROUTE ; Start 10/08/17 at 09: 49; Stop 10/08/17 at 09:50; Status DC Propofol 20 ml @ As Directed STK-MED ONCE IV ; Start 10/08/17 at 09:49; Stop 10/08/17 at 09:50; Status DC Lidocaine HCl (Lidocaine Pf 2% Vial) 5 ml STK-MED ONCE .ROUTE ; Start 10/08/17 at 09:49; Stop 10/08/17 at 09:50; Status DC Dexamethasone Sodium Phosphate (Decadron) 20 mg STK-MED ONCE .ROUTE ; Start at 09:49; Stop 10/08/17 at 09:50; Status DC Ondansetron HCl (Zofran) 4 mg STK-MED ONCE .ROUTE ; Start 10/08/17 at 09:49; Stop 10/08/17 at 09:50; Status DC Ketorolac Tromethamine (Toradol For Or Only) 30 mg STK-MED ONCE INJ ; Start at 09:49; Stop 10/08/17 at 09:50; Status DC Cefazolin Sodium/ Dextrose 50 ml @ 100 mls/hr 1X PREOP IV Last administered on 10/08/17t 12:46; Start 10/08/17 at 11:30; Stop 10/09/17 at 18:00 Bupivacaine HCl/ Epinephrine Bitart (Sensorcain-Mpf Epi 0.5%-1:[id number]) 30 ml STK -MED ONCE .ROUTE Last administered on 10/08/17t 12:43; Start 10/08/17 at 11: 46; Stop 10/08/17 at 11:47; Status DC Glucagon (Glucagen) 1 mg STK-MED ONCE .ROUTE ; Start 10/08/17 at 11:47; Stop 10/08/17 at 11:48; Status DC Iohexol (Omnipaque 300 Mg/ml) 100 ml STK-MED ONCE .ROUTE Last administered on 10/08/17t 12:43; Start 10/08/17 at 11:47; Stop 10/08/17 at 11:48; Status DC Cellulose 1 each STK-MED ONCE .ROUTE ; Start 10/08/17 at 11:47; Stop 10/08/17 at 11:48; Status DC Acetaminophen (Tylenol) 500 mg PRN Q6HRS PRN PO MILD PAIN / TEMP; Start at 12:15 Fentanyl Citrate (Fentanyl 2ml Vial) 100 mcg STK-MED ONCE .ROUTE ; Start at 12:57; Stop 10/08/17 at 12:58; Status DC Desflurane (Suprane) 60 ml STK-MED ONCE IH ; Start 10/08/17 at 12:57; Stop at 12:58; Status DC Active Scripts Active Zofran Odt (Ondansetron) 4 Mg Tab.rapdis 1 Tab SL Q6HRS PRN Levsin-Sl (Hyoscyamine Sulfate) 0.125 Mg Tab.subl 0.125 Mg SL Q6-8HRS PRN Ibuprofen 600 Mg Tablet 600 Mg PO PRN Q6HRS PRN Allergies Allergies: Coded Allergies: No Known Drug Allergies (Unverified , 10/08/17) ROS General: No: Chills, Night Sweats, Fatigue, Malaise, Appetite, Other PSYCHOLOGICAL ROS: No: Anxiety, Behavioral Disorder, Concentration difficultie , Decreased libido, Depression, Disorientation, Hallucinations, Hostility, Irritablity, Memory difficulties, Mood Swings, Obsessive thoughts, Physical abuse, Sexual abuse, Sleep disturbances, Suicidal ideation, Other Eyes: No Blurry vision, No Decreased vision, No Double vision, No Dry eyes, No Excessive tearing, No Eye Pain, No Itchy Eyes, No Loss of vision, No Photophobia , No Scotomata, No Uses contacts, No Uses glasses, No Other HEENT: No: Heacaches, Visual Changes, Hearing change, Nasal congestion, Nasal discharge, Oral lesions, Sinus pain, Sore Throat, Epistaxis, Sneezing, Snoring, Tinnitus, Vertigo, Vocal changes, Other ALLERGY AND IMMUNOLOGY: No: Hives, Insect Bite Sensitivity, Itchy/Watery Eyes, Nasal Congestion, Post Nasal Drip, Seasonal Allergies, Other Hematological and Lymphatic: No: Bleeding Problems, Blood Clots, Blood Transfusions, Brusing, Night Sweats, Pallor, Swollen Lymph Nodes, Other ENDOCRINE: No: Breast Changes, Galactorrhea, Hair Pattern Changes, Hot Flashes , Malaise/lethargy, Mood Swings, Palpitations, Polydipsia/polyuria, Skin Changes , Temperature Intolerance, Unexpected Weight Changes, Other Breast: No New/Changing Breast Lumps, No Nipple changes, No Nipple discharge, No Other Respiratory: No: Cough, Hemoptysis, Orthopnea, Pleuritic Pain, Shortness of breath, SOB with excertion, Sputum Changes, Stridor, Tachypnea, Wheezing, Other Cardiovascular: No Chest Pain, No Palpitations, No Orthopnea, No Paroxysmal Noc. Dyspnea, No Edema, No Lt Headedness, No Other Gastrointestinal: Yes Abdominal Pain Genitourinary: No Dysuria, No Frequency, No Incontinence, No Hematuria, No Retention, No Discharge, No Urgency, No Pain, No Flank Pain, No Other, No , No , No , No , No , No , No Musculoskeletal: No Gait Disturbance, No Joint Pain, No Joint Stiffness, No Joint Swelling, No Muscle Pain, No Muscular Weakness, No Pain In:, No Swelling In:, No Other Neurological: No Behavorial Changes, No Bowel/Bladder ControlChng, No Confusion , No Dizziness, No Gait Disturbance, No Headaches, No Impaired Coord/balance, No Memory Loss, No Numbness/Tingling, No Seizures, No Speech Problems, No Tremors, No Visual Changes, No Weakness, No Other Skin: No Dry Skin, No Eczema, No Hair Changes, No Lumps, No Mole Changes, No Mottling, No Nail Changes, No Pruritus, No Rash, No Skin Lesion Changes, No Other, No Acne Physical Exam General: Alert, Oriented X3, Cooperative, No acute distress HEENT: Atraumatic, PERRLA Lungs: Clear to auscultation, Normal air movement Heart: S1S2, RRR, no thrills, no rubs, no gallops, no murmurs Cardiovascular: S1, S2 Breasts: Normal, Rt breast nml w/o mass, Lt breast nml w/o mass, Nipples normal Abdomen: Soft, Other (tenderness right upper quadrant area, no guarding) Male Genitals Exam: normal genitalia, normal prostate Rectal Exam: not examined PELVIC: Nml ext genitalia, Nml ext vulva, Nml ext vagina Extremities: No clubbing, No cyanosis, No edema, Normal pulses, No tenderness/ swelling Skin: No rashes, No breakdown, No significant lesion Neuro: Normal gait, Normal speech, Strength at 5/5 X4 ext, Normal tone, Sensation intact, Cranial nerves 3-12 NL, Reflexes 2+ Vitals Vitals Vital Signs Date Time Temp Pulse Resp B/P (MAP) Pulse Ox O2 Delivery O2 Flow Rate FiO2 10/08/17 13:15 98.7 58 16 143/82 100 Simple Mask 10 98.7 Labs Labs Laboratory Tests Test 10/08/17 05:08 10/08/17 05:20 White Blood Count 8.9 x10^3/uL (4.0-11.0) Red Blood Count 4.68 x10^6/uL (3.50-5.40) Hemoglobin 14.6 g/dL (12.0-15.5) Hematocrit 43.2 % (36.0-47.0) Mean Corpuscular Volume 92 fL (79-100) Mean Corpuscular Hemoglobin 31 pg (25-35) Mean Corpuscular Hemoglobin Concent 34 g/dL (31-37) Red Cell Distribution Width 12.8 % (11.5-14.5) Platelet Count 267 x10^3/uL (140-400) Neutrophils (%) (Auto) 65 % (31-73) Lymphocytes (%) (Auto) 26 % (24-48) Monocytes (%) (Auto) 6 % (0-9) Eosinophils (%) (Auto) 2 % (0-3) Basophils (%) (Auto) 1 % (0-3) Neutrophils # (Auto) 5.8 x10^3uL (1.8-7.7) Lymphocytes # (Auto) 2.3 x10^3/uL (1.0-4.8) Monocytes # (Auto) 0.5 x10^3/uL (0.0-1.1) Eosinophils # (Auto) 0.2 x10^3/uL (0.0-0.7) Basophils # (Auto) 0.1 x10^3/uL (0.0-0.2) Sodium Level 144 mmol/L (136-145) Potassium Level 3.7 mmol/L (3.5-5.1) Chloride Level 107 mmol/L (98-107) Carbon Dioxide Level 26 mmol/L (21-32) Anion Gap 11 (6-14) Blood Urea Nitrogen 13 mg/dL (7-20) Creatinine 0.8 mg/dL (0.6-1.0) Estimated GFR (Cockcroft-Gault) 75.6 BUN/Creatinine Ratio 16 (6-20) Glucose Level 119 mg/dL (70-99) Calcium Level 9.5 mg/dL (8.5-10.1) Total Bilirubin 0.4 mg/dL (0.2-1.0) Aspartate Amino Transf (AST/SGOT) 14 U/L (15-37) Alanine Aminotransferase (ALT/SGPT) 21 U/L (14-59) Alkaline Phosphatase 78 U/L (46-116) Total Protein 7.0 g/dL (6.4-8.2) Albumin 3.9 g/dL (3.4-5.0) Albumin/Globulin Ratio 1.3 (1.0-1.7) Lipase 171 U/L (73-393) Urine Collection Type Void Urine Color Yellow Urine Clarity Clear Urine pH 6.0 Urine Specific Snow 1.020 Urine Protein Negative mg/dL (NEG-TRACE) Urine Glucose (UA) Negative mg/dL (NEG) Urine Ketones (Stick) Negative mg/dL (NEG) Urine Blood Moderate (NEG) Urine Nitrite Negative (NEG) Urine Bilirubin Negative (NEG) Urine Urobilinogen Dipstick 0.2 mg/dL (0.2 mg/dL) Urine Leukocyte Esterase Negative (NEG) Urine RBC 6-10 /HPF (0-2) Urine WBC Occ /HPF (0-4) Urine Squamous Epithelial Cells Mod /LPF Urine Bacteria Moderate /HPF (0-FEW) Urine Mucus Marked /LPF Laboratory Tests Test 10/08/17 05:08 10/08/17 05:20 White Blood Count 8.9 x10^3/uL (4.0-11.0) Red Blood Count 4.68 x10^6/uL (3.50-5.40) Hemoglobin 14.6 g/dL (12.0-15.5) Hematocrit 43.2 % (36.0-47.0) Mean Corpuscular Volume 92 fL (79-100) Mean Corpuscular Hemoglobin 31 pg (25-35) Mean Corpuscular Hemoglobin Concent 34 g/dL (31-37) Red Cell Distribution Width 12.8 % (11.5-14.5) Platelet Count 267 x10^3/uL (140-400) Neutrophils (%) (Auto) 65 % (31-73) Lymphocytes (%) (Auto) 26 % (24-48) Monocytes (%) (Auto) 6 % (0-9) Eosinophils (%) (Auto) 2 % (0-3) Basophils (%) (Auto) 1 % (0-3) Neutrophils # (Auto) 5.8 x10^3uL (1.8-7.7) Lymphocytes # (Auto) 2.3 x10^3/uL (1.0-4.8) Monocytes # (Auto) 0.5 x10^3/uL (0.0-1.1) Eosinophils # (Auto) 0.2 x10^3/uL (0.0-0.7) Basophils # (Auto) 0.1 x10^3/uL (0.0-0.2) Sodium Level 144 mmol/L (136-145) Potassium Level 3.7 mmol/L (3.5-5.1) Chloride Level 107 mmol/L (98-107) Carbon Dioxide Level 26 mmol/L (21-32) Anion Gap 11 (6-14) Blood Urea Nitrogen 13 mg/dL (7-20) Creatinine 0.8 mg/dL (0.6-1.0) Estimated GFR (Cockcroft-Gault) 75.6 BUN/Creatinine Ratio 16 (6-20) Glucose Level 119 mg/dL (70-99) Calcium Level 9.5 mg/dL (8.5-10.1) Total Bilirubin 0.4 mg/dL (0.2-1.0) Aspartate Amino Transf (AST/SGOT) 14 U/L (15-37) Alanine Aminotransferase (ALT/SGPT) 21 U/L (14-59) Alkaline Phosphatase 78 U/L (46-116) Total Protein 7.0 g/dL (6.4-8.2) Albumin 3.9 g/dL (3.4-5.0) Albumin/Globulin Ratio 1.3 (1.0-1.7) Lipase 171 U/L (73-393) Urine Collection Type Void Urine Color Yellow Urine Clarity Clear Urine pH 6.0 Urine Specific [place] 1.020 Urine Protein Negative mg/dL (NEG-TRACE) Urine Glucose (UA) Negative mg/dL (NEG) Urine Ketones (Stick) Negative mg/dL (NEG) Urine Blood Moderate (NEG) Urine Nitrite Negative (NEG) Urine Bilirubin Negative (NEG) Urine Urobilinogen Dipstick 0.2 mg/dL (0.2 mg/dL) Urine Leukocyte Esterase Negative (NEG) Urine RBC 6-10 /HPF (0-2) Urine WBC Occ /HPF (0-4) Urine Squamous Epithelial Cells Mod /LPF Urine Bacteria Moderate /HPF (0-FEW) Urine Mucus Marked /LPF VTE Prophylaxis Ordered VTE Prophylaxis Devices: Yes VTE Pharmacological Prophylaxi: Yes Assessment/Plan Assessment/Plan Assessment: Acute symptomatically cholelithiasis, mildly dilated CBD with early signs of cholecystitis Hypertension GERD, chronic stable Smoker less than a pack-a-day Plan: Cholecystectomy today Labs tomorrow Pain control Evonne patch when necessary JOYCE BLOCK MD Oct 08, 2017 13:32
[2017-10-08] MEDS ORDERED: NICOTINE 21MG PATCH. TD PRN (13:45)
[2017-10-08] MEDS ORDERED: diphenhydrAMINE 50 MG/ML VIAL IV PRN (16:00)
[2017-10-08] MEDS ORDERED: DEXTROSE 50% 25 GM / 50ML DISP.SYRIN. IV PRN (16:00)
[2017-10-08] MEDS ORDERED: diphenhydrAMINE HCL 25 MG CAPSULE PO PRN (16:00)
[2017-10-08] MEDS ORDERED: ENOXAPARIN 40 MG/0.4 ML SYRINGE. SQ SCH (16:00)
[2017-10-08] MEDS ORDERED: 0.9 % SODIUM CHLORIDE 10 ML DISP.SYRIN. IV PRN (16:00)
--- NOTE | 2017-10-08 16:00 | PDOC ---
BRIEF OPERATIVE NOTE Date: Oct 08, 2017 Pre-Op Diagnosis cholelithiasis with acute cholecystitis Post-Op Diagnosis same Procedure Performed l/s cholecystectomy with cholangiograms Surgeon Jamie [employer] [facility] Anesthesia Type: General Blood Loss 25cc IV Fluid 1000cc Specimens Obtained GB Findings edematous GB, normal grams, lower abdominal omental adhesions Complications none Operative Note Wk #[id number] EMILY HAZEL MD Oct 08, 2017 16:00
[2017-10-08] MEDS: POTASSIUM CL 20MEQ-0.45% NACL 1,000 ML IV SCH (17:30)
[2017-10-08] MEDS: oxyCODONE/APAP 5/325 1 TAB TABLET PO PRN (19:39)
[2017-10-08] MEDS: LACTOBACILLUS RHAMNOSUS GG 1 CAPSULE. PO SCH (21:40)
[2017-10-08] MEDS: DOCUSATE SODIUM 100 MG CAPSULE. PO SCH (21:40)
[2017-10-09] MEDS: POTASSIUM CL 20MEQ-0.45% NACL 1,000 ML IV SCH ×2 (01:54→11:54)
[2017-10-09 03:00] VITALS: BP 125/97
[2017-10-09 05:50] LABS: BASO % 0 % (0-3); EOS % 0 % (0-3); HEMATOCRIT 37.2 % (36.0-47.0); HEMOGLOBIN 12.4 g/dL (12.0-15.5); LYMPH # 1.3 x10^3/uL (1.0-4.8); LYMPH % 9 % (24-48); MEAN CORPUSCULAR HEMOGLOBIN 31 pg (25-35); MEAN CORPUSCULAR HGB CONC 33 g/dL (31-37); MEAN CORPUSCULAR VOLUME 92 fL (79-100); MONO % 2 % (0-9); NEUT % 89 % (31-73); PLATELET COUNT 231 x10^3/uL (140-400); RED BLOOD COUNT 4.04 x10^6/uL (3.50-5.40); RED CELL DISTRIBUTION WIDTH 13.3 % (11.5-14.5)
[2017-10-09 06:14] LABS: CALCIUM 9.2 mg/dL (8.5-10.1); CREATININE 0.7 mg/dL (0.6-1.0); GFR 88.2; POTASSIUM 4.1 mmol/L (3.5-5.1)
[2017-10-09 07:00] VITALS: BP 123/81
[2017-10-09] MEDS: DOCUSATE SODIUM 100 MG CAPSULE. PO SCH (08:38)
[2017-10-09] MEDS: LACTOBACILLUS RHAMNOSUS GG 1 CAPSULE. PO SCH (08:38)
[2017-10-09 09:25] LABS: PLT ESTIMATE ADEQUATE (ADEQUATE)
--- NOTE | 2017-10-09 10:11 | PDOC ---
SURGICAL PROGRESS NOTE Subjective up and about doing well Vital Signs Vital Signs Date Time Temp Pulse Resp B/P (MAP) Pulse Ox O2 Delivery O2 Flow Rate FiO2 10/09/17 07:51 Room Air 10/09/17 07:00 96.4 57 18 123/81 (95) 98 96.4 10/08/17 14:30 2.0 I&O Intake and Output 10/09/17 07:00 Intake Total 2370 ml Output Total 1000 ml Balance 1370 ml Intake Oral 720 ml IV Total 1650 ml Output Urine Total 375 ml Stool Total 600 ml Estimated Blood Loss 25 ml # Voids 6 PATIENT HAS A ALEX: No General: Alert, Oriented X3, Cooperative, No acute distress Labs Laboratory Tests Test 10/08/17 05:08 10/08/17 05:20 10/09/17 04:50 White Blood Count 8.9 x10^3/uL (4.0-11.0) 14.0 x10^3/uL (4.0-11.0) Red Blood Count 4.68 x10^6/uL (3.50-5.40) 4.04 x10^6/uL (3.50-5.40) Hemoglobin 14.6 g/dL (12.0-15.5) 12.4 g/dL (12.0-15.5) Hematocrit 43.2 % (36.0-47.0) 37.2 % (36.0-47.0) Mean Corpuscular Volume 92 fL (79-100) 92 fL (79-100) Mean Corpuscular Hemoglobin 31 pg (25-35) 31 pg (25-35) Mean Corpuscular Hemoglobin Concent 34 g/dL (31-37) 33 g/dL (31-37) Red Cell Distribution Width 12.8 % (11.5-14.5) 13.3 % (11.5-14.5) Platelet Count 267 x10^3/uL (140-400) 231 x10^3/uL (140-400) Neutrophils (%) (Auto) 65 % (31-73) 89 % (31-73) Lymphocytes (%) (Auto) 26 % (24-48) 9 % (24-48) Monocytes (%) (Auto) 6 % (0-9) 2 % (0-9) Eosinophils (%) (Auto) 2 % (0-3) 0 % (0-3) Basophils (%) (Auto) 1 % (0-3) 0 % (0-3) Neutrophils # (Auto) 5.8 x10^3uL (1.8-7.7) 12.4 x10^3uL (1.8-7.7) Lymphocytes # (Auto) 2.3 x10^3/uL (1.0-4.8) 1.3 x10^3/uL (1.0-4.8) Monocytes # (Auto) 0.5 x10^3/uL (0.0-1.1) 0.3 x10^3/uL (0.0-1.1) Eosinophils # (Auto) 0.2 x10^3/uL (0.0-0.7) 0.0 x10^3/uL (0.0-0.7) Basophils # (Auto) 0.1 x10^3/uL (0.0-0.2) 0.0 x10^3/uL (0.0-0.2) Sodium Level 144 mmol/L (136-145) 144 mmol/L (136-145) Potassium Level 3.7 mmol/L (3.5-5.1) 4.1 mmol/L (3.5-5.1) Chloride Level 107 mmol/L (98-107) 110 mmol/L (98-107) Carbon Dioxide Level 26 mmol/L (21-32) 23 mmol/L (21-32) Anion Gap 11 (6-14) 11 (6-14) Blood Urea Nitrogen 13 mg/dL (7-20) 6 mg/dL (7-20) Creatinine 0.8 mg/dL (0.6-1.0) 0.7 mg/dL (0.6-1.0) Estimated GFR (Cockcroft-Gault) 75.6 88.2 BUN/Creatinine Ratio 16 (6-20) Glucose Level 119 mg/dL (70-99) 158 mg/dL (70-99) Calcium Level 9.5 mg/dL (8.5-10.1) 9.2 mg/dL (8.5-10.1) Total Bilirubin 0.4 mg/dL (0.2-1.0) Aspartate Amino Transf (AST/SGOT) 14 U/L (15-37) Alanine Aminotransferase (ALT/SGPT) 21 U/L (14-59) Alkaline Phosphatase 78 U/L (46-116) Total Protein 7.0 g/dL (6.4-8.2) Albumin 3.9 g/dL (3.4-5.0) Albumin/Globulin Ratio 1.3 (1.0-1.7) Lipase 171 U/L (73-393) Urine Collection Type Void Urine Color Yellow Urine Clarity Clear Urine pH 6.0 Urine Specific [place] 1.020 Urine Protein Negative mg/dL (NEG-TRACE) Urine Glucose (UA) Negative mg/dL (NEG) Urine Ketones (Stick) Negative mg/dL (NEG) Urine Blood Moderate (NEG) Urine Nitrite Negative (NEG) Urine Bilirubin Negative (NEG) Urine Urobilinogen Dipstick 0.2 mg/dL (0.2 mg/dL) Urine Leukocyte Esterase Negative (NEG) Urine RBC 6-10 /HPF (0-2) Urine WBC Occ /HPF (0-4) Urine Squamous Epithelial Cells Mod /LPF Urine Bacteria Moderate /HPF (0-FEW) Urine Mucus Marked /LPF Segmented Neutrophils % 76 % (35-66) Band Neutrophils % 14 % (0-9) Lymphocytes % 9 % (24-48) Monocytes % 1 % (0-10) Platelet Estimate Adequate (ADEQUATE) Laboratory Tests Test 10/09/17 04:50 White Blood Count 14.0 x10^3/uL (4.0-11.0) Red Blood Count 4.04 x10^6/uL (3.50-5.40) Hemoglobin 12.4 g/dL (12.0-15.5) Hematocrit 37.2 % (36.0-47.0) Mean Corpuscular Volume 92 fL (79-100) Mean Corpuscular Hemoglobin 31 pg (25-35) Mean Corpuscular Hemoglobin Concent 33 g/dL (31-37) Red Cell Distribution Width 13.3 % (11.5-14.5) Platelet Count 231 x10^3/uL (140-400) Neutrophils (%) (Auto) 89 % (31-73) Lymphocytes (%) (Auto) 9 % (24-48) Monocytes (%) (Auto) 2 % (0-9) Eosinophils (%) (Auto) 0 % (0-3) Basophils (%) (Auto) 0 % (0-3) Neutrophils # (Auto) 12.4 x10^3uL (1.8-7.7) Lymphocytes # (Auto) 1.3 x10^3/uL (1.0-4.8) Monocytes # (Auto) 0.3 x10^3/uL (0.0-1.1) Eosinophils # (Auto) 0.0 x10^3/uL (0.0-0.7) Basophils # (Auto) 0.0 x10^3/uL (0.0-0.2) Segmented Neutrophils % 76 % (35-66) Band Neutrophils % 14 % (0-9) Lymphocytes % 9 % (24-48) Monocytes % 1 % (0-10) Platelet Estimate Adequate (ADEQUATE) Sodium Level 144 mmol/L (136-145) Potassium Level 4.1 mmol/L (3.5-5.1) Chloride Level 110 mmol/L (98-107) Carbon Dioxide Level 23 mmol/L (21-32) Anion Gap 11 (6-14) Blood Urea Nitrogen 6 mg/dL (7-20) Creatinine 0.7 mg/dL (0.6-1.0) Estimated GFR (Cockcroft-Gault) 88.2 Glucose Level 158 mg/dL (70-99) Calcium Level 9.2 mg/dL (8.5-10.1) Problem List Problems Medical Problems: (1) Cholecystitis Status: Acute (2) Cholelithiasis Status: Acute Assessment/Plan POD 1 l/s genna home today from my standpoint f/u next week Problems: EMILY HAZEL MD Oct 09, 2017 10:10
[2017-10-09 11:00] VITALS: BP 140/83
--- NOTE | 2017-10-09 11:31 | PATHOLOGY ---
PATHOLOGY REPORT * * * * * * * * FINAL DIAGNOSIS: Gallbladder, laparoscopic cholecystectomy: - Cholelithiasis. - Chronic cholecystitis with focally increased eosinophils. COMMENT: There is no evidence of malignancy. (JPM:pit; 10/09/2017) REPORT ELECTRONICALLY SIGNED BY: Jose Antonio Green M.D. DATE/TIME: 10/09/2017 11:31 * * * * * * * * GROSS PATHOLOGY: Received in formalin labeled "Mira Adamson, gallbladder and contents," is a 9.9 x 3.3 x 2.5 cm, intact gallbladder with light pink, vascular serosal surfaces. Opening the gallbladder reveals light green, velvety mucosa and an average wall thickness of 0.2 cm. Calculi are present, measuring 1.9 cm maximum dimension, possessing a green color, and feeling firm to the touch. No masses are noted grossly. Technical Implementation Lead sections from the body and fundus are submitted along with the proximal margin in cassette A1. (TSD; 10/08/2017) INITIAL CPT CODE(S): A; 18781 Professional services [place] [address] Technical services performed by [facility] at [address] [place] [address] [address] [address]. SPECIMEN(S) RECEIVED: A.Gallbladder and contents CLINICAL HISTORY: Cholelithiasis, cholecystitis PATIENT: MIRA ADAMSON /AGE: 5 1965 (Age: 52) PATIENT #: [id number] ALT CASE #: SPECIMEN COLLECTION DATE: 10/08/2017 SPECIMEN RECEIVED DATE: 10/08/2017 [facility] - [address] [place] [address] - PHONE: [phone] * * * END OF REPORT * * *
[2017-10-09] MEDS: oxyCODONE/APAP 5/325 1 TAB TABLET PO PRN (11:45)
--- NOTE | 2017-10-09 13:59 | PDOC3 ---
Discharge Summary Visit Information Date of Admission: Oct 08, 2017 Date of Discharge: Oct 09, 2017 Admitting Diagnosis Comment: Status post laparoscopic cholecystectomy for symptomatically cholelithiasis/ cholecystitis Final Diagnosis Problems Medical Problems: (1) Cholecystitis Status: Acute (2) Cholelithiasis Status: Acute Brief Hospital Course Allergies Allergies Coded Allergies Type Severity Reaction Last Updated Verified No Known Drug Allergies 10/08/17 No Vital Signs Vital Signs Date Time Temp Pulse Resp B/P (MAP) Pulse Ox O2 Delivery O2 Flow Rate FiO2 10/09/17 11:45 16 Room Air 10/09/17 11:00 98.1 55 140/83 (102) 100 98.1 10/08/17 14:30 2.0 Lab Results Laboratory Tests Test 10/08/17 05:08 10/08/17 05:20 10/09/17 04:50 White Blood Count 8.9 x10^3/uL (4.0-11.0) 14.0 x10^3/uL (4.0-11.0) Red Blood Count 4.68 x10^6/uL (3.50-5.40) 4.04 x10^6/uL (3.50-5.40) Hemoglobin 14.6 g/dL (12.0-15.5) 12.4 g/dL (12.0-15.5) Hematocrit 43.2 % (36.0-47.0) 37.2 % (36.0-47.0) Mean Corpuscular Volume 92 fL (79-100) 92 fL (79-100) Mean Corpuscular Hemoglobin 31 pg (25-35) 31 pg (25-35) Mean Corpuscular Hemoglobin Concent 34 g/dL (31-37) 33 g/dL (31-37) Red Cell Distribution Width 12.8 % (11.5-14.5) 13.3 % (11.5-14.5) Platelet Count 267 x10^3/uL (140-400) 231 x10^3/uL (140-400) Neutrophils (%) (Auto) 65 % (31-73) 89 % (31-73) Lymphocytes (%) (Auto) 26 % (24-48) 9 % (24-48) Monocytes (%) (Auto) 6 % (0-9) 2 % (0-9) Eosinophils (%) (Auto) 2 % (0-3) 0 % (0-3) Basophils (%) (Auto) 1 % (0-3) 0 % (0-3) Neutrophils # (Auto) 5.8 x10^3uL (1.8-7.7) 12.4 x10^3uL (1.8-7.7) Lymphocytes # (Auto) 2.3 x10^3/uL (1.0-4.8) 1.3 x10^3/uL (1.0-4.8) Monocytes # (Auto) 0.5 x10^3/uL (0.0-1.1) 0.3 x10^3/uL (0.0-1.1) Eosinophils # (Auto) 0.2 x10^3/uL (0.0-0.7) 0.0 x10^3/uL (0.0-0.7) Basophils # (Auto) 0.1 x10^3/uL (0.0-0.2) 0.0 x10^3/uL (0.0-0.2) Sodium Level 144 mmol/L (136-145) 144 mmol/L (136-145) Potassium Level 3.7 mmol/L (3.5-5.1) 4.1 mmol/L (3.5-5.1) Chloride Level 107 mmol/L (98-107) 110 mmol/L (98-107) Carbon Dioxide Level 26 mmol/L (21-32) 23 mmol/L (21-32) Anion Gap 11 (6-14) 11 (6-14) Blood Urea Nitrogen 13 mg/dL (7-20) 6 mg/dL (7-20) Creatinine 0.8 mg/dL (0.6-1.0) 0.7 mg/dL (0.6-1.0) Estimated GFR (Cockcroft-Gault) 75.6 88.2 BUN/Creatinine Ratio 16 (6-20) Glucose Level 119 mg/dL (70-99) 158 mg/dL (70-99) Calcium Level 9.5 mg/dL (8.5-10.1) 9.2 mg/dL (8.5-10.1) Total Bilirubin 0.4 mg/dL (0.2-1.0) Aspartate Amino Transf (AST/SGOT) 14 U/L (15-37) Alanine Aminotransferase (ALT/SGPT) 21 U/L (14-59) Alkaline Phosphatase 78 U/L (46-116) Total Protein 7.0 g/dL (6.4-8.2) Albumin 3.9 g/dL (3.4-5.0) Albumin/Globulin Ratio 1.3 (1.0-1.7) Lipase 171 U/L (73-393) Urine Collection Type Void Urine Color Yellow Urine Clarity Clear Urine pH 6.0 Urine Specific [place] 1.020 Urine Protein Negative mg/dL (NEG-TRACE) Urine Glucose (UA) Negative mg/dL (NEG) Urine Ketones (Stick) Negative mg/dL (NEG) Urine Blood Moderate (NEG) Urine Nitrite Negative (NEG) Urine Bilirubin Negative (NEG) Urine Urobilinogen Dipstick 0.2 mg/dL (0.2 mg/dL) Urine Leukocyte Esterase Negative (NEG) Urine RBC 6-10 /HPF (0-2) Urine WBC Occ /HPF (0-4) Urine Squamous Epithelial Cells Mod /LPF Urine Bacteria Moderate /HPF (0-FEW) Urine Mucus Marked /LPF Segmented Neutrophils % 76 % (35-66) Band Neutrophils % 14 % (0-9) Lymphocytes % 9 % (24-48) Monocytes % 1 % (0-10) Platelet Estimate Adequate (ADEQUATE) Laboratory Tests Test 10/09/17 04:50 White Blood Count 14.0 x10^3/uL (4.0-11.0) Red Blood Count 4.04 x10^6/uL (3.50-5.40) Hemoglobin 12.4 g/dL (12.0-15.5) Hematocrit 37.2 % (36.0-47.0) Mean Corpuscular Volume 92 fL (79-100) Mean Corpuscular Hemoglobin 31 pg (25-35) Mean Corpuscular Hemoglobin Concent 33 g/dL (31-37) Red Cell Distribution Width 13.3 % (11.5-14.5) Platelet Count 231 x10^3/uL (140-400) Neutrophils (%) (Auto) 89 % (31-73) Lymphocytes (%) (Auto) 9 % (24-48) Monocytes (%) (Auto) 2 % (0-9) Eosinophils (%) (Auto) 0 % (0-3) Basophils (%) (Auto) 0 % (0-3) Neutrophils # (Auto) 12.4 x10^3uL (1.8-7.7) Lymphocytes # (Auto) 1.3 x10^3/uL (1.0-4.8) Monocytes # (Auto) 0.3 x10^3/uL (0.0-1.1) Eosinophils # (Auto) 0.0 x10^3/uL (0.0-0.7) Basophils # (Auto) 0.0 x10^3/uL (0.0-0.2) Segmented Neutrophils % 76 % (35-66) Band Neutrophils % 14 % (0-9) Lymphocytes % 9 % (24-48) Monocytes % 1 % (0-10) Platelet Estimate Adequate (ADEQUATE) Sodium Level 144 mmol/L (136-145) Potassium Level 4.1 mmol/L (3.5-5.1) Chloride Level 110 mmol/L (98-107) Carbon Dioxide Level 23 mmol/L (21-32) Anion Gap 11 (6-14) Blood Urea Nitrogen 6 mg/dL (7-20) Creatinine 0.7 mg/dL (0.6-1.0) Estimated GFR (Cockcroft-Gault) 88.2 Glucose Level 158 mg/dL (70-99) Calcium Level 9.2 mg/dL (8.5-10.1) Brief Hospital Course Ms. Adamson is a 52 old female with a normal BMI comes in because of acute onset abdominal pain, found to have cholelithiasis symptomatic. Underwent upper scope cholecystectomy by general surgery. Patient cleared to discharge from general surgery and postop day #1. Discharge instructions follow-up GS 2 weeks [facility] Condition at Discharge: Improved, Stable Follow Up: Weeks (2 weeks care of ) Disposition/Orders: D/C to Home Scheduled PRN Hyoscyamine Sulfate (Levsin-Sl), 0.125 MG SL Q6-8HRS PRN for abdominal cramps Ibuprofen (Ibuprofen), 600 MG PO PRN Q6HRS PRN for PAIN Ondansetron (Zofran Odt), 1 TAB SL Q6HRS PRN for NAUSEA JOYCE BLOCK MD Oct 09, 2017 13:59
== END 2017-10-09 14:35 | disposition home or self-care (01) | DRG 419 ==
LOC: ER 04:51 → 4 NORTH 07:20
PROVIDERS: ADMIT Internal Medicine; ATTEND Internal Medicine
PROC: BF101ZZ Fluoroscopy of Bile Ducts using Low Osmolar Contrast (ICD-10-PCS; 2017-10-08)
PROC: 0FT44ZZ Resection of Gallbladder, Percutaneous Endoscopic Approach (ICD-10-PCS; principal; 2017-10-08 11:00)
DX: K80.00 Calculus of gallbladder with acute cholecystitis without obstruction (principal); F17.210 Nicotine dependence, cigarettes, uncomplicated; K21.9 Gastro-esophageal reflux disease without esophagitis; I10 Essential (primary) hypertension; Z98.891 History of uterine scar from previous surgery
CPT/HCPCS: 36415; 74300; 76705; 80048; 80053; 81001; 83690; 85007; 85025; 87086; 88304; 93005; 96374; 96375; J0690; J1100; J1610; J1650; J1885; J2250; J2405; J2543; J2704; J2710; J3010; J3490; J7030; J7120; Q9967; 99285-25; J2001